=== PATIENT | male | born 1995 | race Caucasian/White ===

== ENCOUNTER 2019-03-18 12:29 | Emergency (ER) | payer OTHER ==
[~2019-03-18] VITALS: Ht 185.4 cm; Wt 72.8 kg
[2019-03-18] MEDS ORDERED: ONDANSETRON 2MG/ML, 2ML ONE (12:42)
--- NOTE | 2019-03-18 12:56 | NUR ---
23 Y/O MALE PRESENTS TO ED WITH C/O N/V/. PER REPORT PT HAD A MARIJUANA EDIBLE AND CONSUMED 50 MG THC. PT IS VOMITING. PT WAS GIVEN 4MG ODT ZOFRAN PRIOR TO ARRIVAL. PT PLACED ON CON TPULSE OX,NIBP, PT A&OX4. GIRLFRIEND BEDSIDE
--- NOTE | 2019-03-18 12:57 | NUR ---
PIV ESTABLISHED. PT TOLERATED WITH NO COMPLICATIONS.
[2019-03-18] MEDS ORDERED: SODIUM CHLORIDE 0.9% 1,000ML IVBOLUS ONE (13:00)
[2019-03-18] MEDS ORDERED: SODIUM CHLORIDE FLUSH 10ML SYR IVF ONE (13:00)
--- NOTE | 2019-03-18 13:42 | NUR ---
BREAK RN NOTE: NS INFUSION COMPLETE. PT DROWSY, OPENS EYES SPONTANEOUSLY. ORIENTED. RESPS EVEN AND UNLABORED, DENIES PAIN. S/O AT BEDSIDE. VSS. AWAITING MD RECHECK AND FURTHER ORDERS AT THIS TIME.
--- NOTE | 2019-03-18 14:10 | NUR ---
PT RESTING ON CINDY. INGRID. GIRLFRIEND BEDSIDE. NO NEEDS REQUESTED AT THIS TIME
--- NOTE | 2019-03-18 15:38 | NUR ---
PT CONTINUES TO SLEEP ON GURNEY. PT AWAKENS TO VERBAL STIMULI. PT A&Ox4. GIRLFRIEND BEDSIDE. INGRID
[2019-03-18 15:41] VITALS: BP 99/40
--- NOTE | 2019-03-18 16:16 | NUR ---
Patient/Caregiver given discharge instructions and they have confirmed that they understand the instructions. Patient ambulatory with steady gait. PT LEFT WITH ALL PERSONAL BELONGINGS.
== END 2019-03-18 16:18 | disposition home or self-care (01) ==
LOC: ED 16:00
DX: R11.2 Nausea with vomiting, unspecified (principal); T40.7X1A Poisoning by cannabis (derivatives), accidental (unintentional), initial encounter; Y92.9 Unspecified place or not applicable
CPT/HCPCS: 99283; J7030